=== PATIENT | female | born 1995 | race Two or more races ===

== ENCOUNTER 2017-11-03 23:19 | Observation (INO) ==
--- NOTE | 2017-11-04 11:52 | P.HP ---
History of Present Illness Primary Care Physician: No Primary Care Physician Chief Complaint: Nausea, vomiting, diarrhea History of Present Illness: 22-year-old female with known history of hyperthyroidism who presented to the hospital for evaluation of acute onset nausea, vomiting. Patient states that 2 days ago she felt that she ate some bad chicken and then abruptly at approximately 8 PM last night she started with acute onset of nausea, vomiting and then diarrhea. She states that she cannot keep anything down and she cannot stop vomiting so she went to the emergency department for evaluation. Patient was given Phenergan emergency department with improvement. She states that she was able to tolerate cold water last night, however when she had warm water and cause her to vomit. Patient had workup done emergency department found to have sepsis secondary to gastroenteritis. Patient was given 3 L of fluid bolus, due to acute dehydration. Presently patient is feeling much better. She has not had any nausea or vomiting since 4 AM. - Diagnosis (1) Sepsis (2) Gastroenteritis (3) Leukocytosis (4) Metabolic acidosis Review of Systems All other systems reviewed negative except as stated in HPI Gastrointestinal: Reports loose stools, Reports nausea, Reports vomiting PMFSH - History History Provided By: Patient - Medical History Medical History: Medical History (Last Updated 11/04/17 @ 11:44 by SARITA Hui) History of scoliosis Hyperthyroidism - Surgical History Surgical History: Surgical History (Last Reviewed 11/04/17 @ 11:44 by SARITA Hui) H/O spinal fusion - Family History Family History: Family History (Last Updated 11/04/17 @ 11:45 by SARITA Hui) Mother History of heart disease - Tobacco History Second Hand Smoke Exposure: Yes Smoking Status: Heavy tobacco smoker Tobacco Type: Cigarettes Packs Per Day: 0.5 Years Smoked: 3 - Alcohol History How Often Do You Have a Drink Containing Alcohol: Monthly or less - Substance Use History Substance History: Active Abuse (Patient admits to marijuana use, however positive for marijuana and cocaine) Medications and Allergies Allergies Allergy/AdvReac Type Severity Reaction Status Date / Time montelukast [From Singulair] Allergy Hives Verified 11/03/17 23:43 Home Medications Medication Instructions Recorded Confirmed Type methimazole 5 mg PO TID 11/03/17 11/03/17 History Exam Vital signs: Vital Signs 11/04/17 08:00 Temperature 98.1 F Pulse Rate 110 H Respiratory Rate 20 Blood Pressure 128/61 Pulse Oximetry 96 Narrative: GENERAL: Well-developed, well-nourished, in no acute distress. alert and orientated HEENT: Head is normocephalic without any lesions or masses noted. Facial features are symmetric. Eyes: Pupils equal round reactive to light. Extraocular muscles are intact. Conjunctivae were clear. Oropharyngeal: Pharynx without any erythema edema. Tongue is midline without deviation. Buccal mucosa is moist without any masses or lesions NECK: Supple without any masses. Trachea midline no deviation. No JVD, no bruits are appreciated CARDIAC: Regular rhythm, regular rate. S1/S2 are heard. No murmurs gallops or rubs. LUNGS: Clear to auscultation bilaterally. No wheeze, rhonchi or rales. No use of accessory muscles on inspiration or expiration. ABDOMEN: Soft, nontender. Nondistended. Bowel sounds heard in all 4 quadrants. No organomegaly or masses. Negative rebound, negative guarding EXTREMITIES: No edema, pulses are equal bilaterally. No cyanosis or clubbing NEUROLOGY: Mood and affect appear appropriate. Cranial nerves II through XII grossly intact. Muscle strength 5/5 in upper and lower extremities bilaterally. Deep tendon reflexes are 2+ in upper and lower extremities bilaterally. Caprini VTE Risk Assessment Caprini VTE Risk Assessment: No/Low Risk (score <= 1) Caprini Risk Assessment Model: Point Value = 1 Point Value = 2 Point Value = 3 Point Value = 5 Age 41-60 Minor surgery BMI > 25 kg/m2 Swollen legs Varicose veins or History of unexplained or recurrent spontaneous Oral contraceptives or hormone replacement Sepsis (< 1 month) Serious lung disease, including pneumonia (< 1 month) Abnormal pulmonary function Acute myocardial infarction Congestive heart failure (< 1 month) History of inflammatory bowel disease Medical patient at bed rest Age 61-74 Arthroscopic surgery Major open surgery (> 45 min) Laparoscopic surgery (> 45 min) Malignancy Confined to bed (> 72 hours) Immobilizing plaster cast Central venous access Age >= 75 History of VTE Family history of VTE Factor V Leiden Prothrombin [id number] Lupus anticoagulant Anticardiolipin antibodies Elevated serum homocysteine Heparin-induced thrombocytopenia Other congenital or acquired thrombophilia Stroke (< 1 month) Elective arthroplasty Hip, pelvis, or leg fracture Acute spinal cord injury (< 1 month) Prophylaxis Regimen: Total Risk Factor Score Risk Level Prophylaxis Regimen 0-1 Low Early ambulation 2 Moderate Order ONE of the following: *Sequential Compression Device (SCD) *Heparin 5000 units SQ BID 3-4 Higher Order ONE of the following medications: *Heparin 5000 units SQ TID *Enoxaparin/Lovenox 40 mg SQ daily (WT < 150 kg, CrCl > 30 mL/min) *Enoxaparin/Lovenox 30 mg SQ daily (WT < 150 kg, CrCl > 10-29 mL/min) *Enoxaparin/Lovenox 30 mg SQ BID (WT < 150 kg, CrCl > 30 mL/min) AND/OR *Sequential Compression Device (SCD) 5 or more Highest Order ONE of the following medications: *Heparin 5000 units SQ TID (Preferred with Epidurals) *Enoxaparin/Lovenox 40 mg SQ daily (WT < 150 kg, CrCl > 30 mL/min) *Enoxaparin/Lovenox 30 mg SQ daily (WT < 150 kg, CrCl > 10-29 mL/min) *Enoxaparin/Lovenox 30 mg SQ BID (WT < 150 kg, CrCl > 30 mL/min) AND *Sequential Compression Device (SCD) Assessment and Plan - Assessment (1) Sepsis Code(s): A41.9 - Sepsis, unspecified organism Status: Acute (2) Gastroenteritis Code(s): K52.9 - Noninfective gastroenteritis and colitis, unspecified Status : Acute (3) Leukocytosis Code(s): D72.829 - Elevated white blood cell count, unspecified Status: Acute (4) Metabolic acidosis Code(s): E87.2 - Acidosis Status: Acute - Plan Sepsis -Patient met criteria on presentation with leukocytosis, tachycardia, gastroenteritis -C. difficile culture is pending, stool for WBCs is pending -Liver ultrasound showed echogenic sludge and debris without gallstones or wall thickening. -Obtain CT of the abdomen and pelvis without IV contrast -Urinalysis was unremarkable Gastroenteritis with associated metabolic acidosis -Continue IV fluids -Advance diet as tolerated -Continue monitor BMP Leukocytosis -Likely secondary to concentration -Monitor CBC Hyperthyroidism -Continue home medications -TSH less than 0.05, free T4 1.88 DVT prevention -Sequential compression devices -Subcutaneous heparin Discharge Planning: Discharge planning likely tomorrow if patient tolerates diet and hydrated.
[2017-11-04] MEDS ORDERED: Bisacodyl 10 MG Supp RECTAL PRN (11:53)
[2017-11-04] MEDS ORDERED: Acetaminophen 325 MG Tablet PO PRN (11:53)
[2017-11-04] MEDS ORDERED: Temazepam 15 MG Capsule PO PRN (11:53)
--- NOTE | 2017-11-04 13:43 | CT ---
EXAM DATE: 11/04/2017 1:34 PM EDT AGE/SEX: 22 years / Female INDICATIONS: Nausea, vomiting and diarrhea. Upper abdominal pain. CLINICAL DATA: This is the patient's initial encounter. Patient reports that signs and symptoms have been present for 2 days and indicates a pain score of 0/10. MEDICAL/SURGICAL HISTORY: Hyperthyroidism. Asthma. Scoliosis. . Spinal fusion. RADIATION DOSE: 18.08 CTDI (mGy) COMPARISON: No prior exams available for comparison. TECHNIQUE: Multiple contiguous axial images were obtained through the abdomen. Images were obtained using multiple row detector helical technique. Using automated exposure control and adjustment of the mA and/or kV according to patient size, radiation dose was kept as low as reasonably achievable to o btain optimal diagnostic quality images. DICOM format image data is available electronically for rev iew and comparison. FINDINGS: There is streak artifact from right and screw fixation of the thoracolumbar spine through the L4 leve l. There are scattered diverticuli of the sigmoid colon without evidence of diverticulitis. The appen andrea is normal. No evidence of bowel obstruction. Urinary bladder, kidneys, pancreas, adrenal glands, liver and gallbladder are normal in appearance. The spleen is mildly prominent measuring 13.3 cm in A P dimension. There is increased number and size of numerous mesenteric lymph nodes measuring up to 1. 1 cm in short axis dimension on axial image 39. There are subcentimeter lymph nodes also seen in the retroperitoneum. Subcentimeter bilateral inguinal lymph nodes are noted. There are no worrisome osseo us lesions. The lung bases are clear. There is linear atelectasis versus scarring in the right middle lobe lateral segment. Uterus and left ovary are normal. Right ovarian cyst measuring 3.1 cm suspecte d. CONCLUSION: 1. Right adnexal cyst. 2. Nonspecific adenopathy in the mesentery as above. 3. Mild splenomegaly. Electronically signed by: Fuentes Canales MD 11/04/2017 1:41 PM EDT
[2017-11-04] MEDS ORDERED: Senna/Docusate Sodium 8.6/50 MG Tablet PO SCH (21:00)
[2017-11-04] MEDS: Sod Chloride 0.9% Inj 1,000 ML IV.CONT SCH ×3 (21:59→23:47)
[2017-11-04] MEDS: Heparin - SQ 10,000 UNITS/ML Vial SQ SCH (23:46)
[2017-11-05] MEDS: Sod Chloride 0.9% Inj 1,000 ML IV.CONT SCH ×2 (00:01→00:04)
[2017-11-05 00:49] VITALS: PULSE 87
[2017-11-05] MEDS: Heparin - SQ 10,000 UNITS/ML Vial SQ SCH (01:35)
[2017-11-05 05:44] VITALS: RESP 16
[2017-11-05 06:00] LABS: Chloride 110 meq/L (98-107); Potassium 3.1 meq/L (3.5-5.1); Sodium 140 meq/L (136-145)
[2017-11-05 06:06] LABS: Calcium 7.9 mg/dL (8.5-10.1)
[2017-11-05 06:07] LABS: Albumin 2.7 g/dL (3.4-5.0); Anion Gap 8 meq/L (5-15); Blood Urea Nitrogen 3 mg/dL (7-18); Carbon Dioxide 22.1 meq/L (21.0-32.0); Glucose,Random 83 mg/dL (74-106)
[2017-11-05 06:10] LABS: Alanine Aminotransferase 28 U/L (10-53); Aspartate Aminotransferase 19 U/L (15-37); Glomerular Filtration Rate Greater Than 89 mL/min (>89)
[2017-11-05 06:12] LABS: Total Protein 6.3 g/dL (6.4-8.2)
[2017-11-05 06:13] LABS: Alkaline Phosphatase 62 U/L (45-117)
--- NOTE | 2017-11-05 08:11 | P.PN ---
Subjective Interval history: Patient seen and examined today for follow-up on gastroenteritis. Patient is doing much better. She tolerated full diet last night and this morning without any recurrent nausea or vomiting. Patient states that she still having loose stools. Vital signs are stable, patient remains afebrile. Discussed with patient her laboratory studies findings, plan of care. Patient is eager to go home. Physical Exam Vital signs: Vital Signs 11/04/17 12:00 11/04/17 16:00 11/04/17 20:00 Temperature 99.4 F 97.3 F L 97.2 F L Pulse Rate 97 H 99 H 94 H Respiratory Rate 20 20 20 Blood Pressure 119/63 129/79 128/70 Pulse Oximetry 97 96 98 11/05/17 00:00 11/05/17 04:00 Temperature 97.9 F Pulse Rate 87 Respiratory Rate 20 16 Blood Pressure 138/76 Pulse Oximetry 98 Intake & Output 11/04/17 11/05/17 11/05/17 18:59 06:59 18:59 Intake Total 1140 / 1140 Balance 1140 / 1140 Weight 100.1 kg Intake: Oral 1140 / 1140 Other: # Voids 2 # Bowel Movements 2 Narrative: GENERAL: Well-developed, well-nourished, in no acute distress. alert and orientated HEENT: Head is normocephalic without any lesions or masses noted. Facial features are symmetric. Eyes: Extraocular muscles are intact. Conjunctivae were clear. NECK: Supple without any masses. Trachea midline no deviation. No JVD, CARDIAC: Regular rhythm, regular rate. S1/S2 are heard. No murmurs gallops or rubs. LUNGS: Clear to auscultation bilaterally. No wheeze, rhonchi or rales. No use of accessory muscles on inspiration or expiration. ABDOMEN: Soft, nontender. Nondistended. Bowel sounds heard in all 4 quadrants. No organomegaly or masses. Negative rebound, negative guarding EXTREMITIES: No edema, pulses are equal bilaterally. No cyanosis or clubbing NEUROLOGY: Mood and affect appear appropriate. Cranial nerves II through XII grossly intact. Moving all extremities, speech is clear Results - Labs CBC & Chem 7: 11/05/17 04:22 11/05/17 04:22 Laboratory Results - last 24 hr 11/04/17 11/04/17 11/05/17 12:25 17:23 04:22 Sodium 140 Potassium 3.1 L D Chloride 110 H Carbon Dioxide 22.1 Anion Gap 8 BUN 3 L Creatinine 0.45 L Estimated GFR Greater than 89 POC Glucose 99 106 Random Glucose 83 Calcium 7.9 L D Total Bilirubin 0.5 AST 19 ALT 28 Alkaline Phosphatase 62 Total Protein 6.3 L D Albumin 2.7 L D - Imaging Impressions Abdomen/Pelvis CT 11/04/17 00:00 CONCLUSION: 1. Right adnexal cyst. 2. Nonspecific adenopathy in the mesentery as above. 3. Mild splenomegaly. - Procedures None Assessment and Plan - Assessment (1) Sepsis Code(s): A41.9 - Sepsis, unspecified organism Status: Acute (2) Gastroenteritis Code(s): K52.9 - Noninfective gastroenteritis and colitis, unspecified Status : Acute (3) Leukocytosis Code(s): D72.829 - Elevated white blood cell count, unspecified Status: Acute (4) Metabolic acidosis Code(s): E87.2 - Acidosis Status: Acute - Plan Sepsis, resolved -Patient met criteria on presentation with leukocytosis, tachycardia, gastroenteritis -C. difficile culture negative, stool for WBCs showed few WBCs -Liver ultrasound showed echogenic sludge and debris without gallstones or wall thickening. -CT of the abdomen showed some mesenteric adenopathy, otherwise no acute abnormality -Urinalysis was unremarkable Gastroenteritis with associated metabolic acidosis, improving -Continue IV fluids -Advance diet as tolerated -Continue monitor BMP Hypokalemia -Replete and continue to monitor leukocytosis, resolved -Likely secondary to concentration -Monitor CBC Hyperthyroidism -Continue home medications -TSH less than 0.05, free T4 1.88 DVT prevention -Sequential compression devices -Subcutaneous heparin Discharge Planning: Discharge home in stable condition Activity: Ad earl. Diet: Regular diet Medication per medication reconciliation Follow-up with primary medical doctor in 1 week
[2017-11-05 08:38] LABS: Baso # (Auto) 0.1 th/mm3 (0.0-0.2); Baso % (Auto) 1.6 % (0.0-2.0); Eos # (Auto) 0.1 th/mm3 (0.0-0.4); Eos % (Auto) 2.4 % (0.0-4.0); Hematocrit 37.3 % (35.0-46.0); Lymph # (Auto) 1.8 th/mm3 (1.0-4.8); Mean Corpuscular HGB Conc 32.3 % (32.0-36.0); Mean Corpuscular Volume 77.4 fL (80.0-100.0); Mean Platelet Volume 9.2 fL (7.0-11.0); Mono # (Auto) 0.4 th/mm3 (0.0-0.9); Mono % (Auto) 8.4 % (0.0-8.0); Neut # (Auto) 2.8 th/mm3 (1.8-7.7); Neut % (Auto) 53.6 % (16.0-70.0); Platelet Count 290 th/mm3 (150-450); Red Blood Count 4.82 mil/mm3 (4.00-5.30); Red Cell Distribution Width 13.5 % (11.6-17.2); White Blood Count 5.2 th/mm3 (4.0-11.0)
[2017-11-05 08:39] VITALS: BP 117/58; TEMP 97.8; O2SAT 94
[2017-11-05 09:02] LABS: RBC Morphology Normal (Normal)
== END 2017-11-05 11:00 | disposition home or self-care (01) ==
LOC: PHEDDLT 23:19 → PH3 23:19
PROVIDERS: ADMIT Hospitalist; ATTEND Hospitalist